=== PATIENT | female | born 1945 | race Caucasian/White ===

== ENCOUNTER → 2017-03-22 | Outpatient (CLI) | payer MEDICARE, BC ==
[~2017-03-22] MED LIST: ASPIRIN E.C. 8181 MG PO; CALCIUM WITH D31 CTB PO; NAPROSYN500 MG PO; SYNTHROID0.05 MG/TA PO
== END ==
LOC: MC.RAD 07:00
DX: Z12.31 Encounter for screening mammogram for malignant neoplasm of breast (principal)

== ENCOUNTER → 2017-06-10 | Outpatient (CLI) | payer MEDICARE, BC | LOC: COL.RAD 07:37 | DX: M79.645 Pain in left finger(s) (principal); M25.532 Pain in left wrist | CPT/HCPCS: J3301; Q9967 ==

== ENCOUNTER → 2018-03-31 | Outpatient (CLI) | payer MEDICARE, BC | LOC: MC.RAD 07:33 | DX: Z12.31 Encounter for screening mammogram for malignant neoplasm of breast (principal) ==

== ENCOUNTER → 2019-04-13 | Outpatient (CLI) | payer MEDICARE, BC | LOC: MC.RAD 04-07 09:15 | DX: Z12.31 Encounter for screening mammogram for malignant neoplasm of breast (principal) ==

== ENCOUNTER → 2020-05-03 | Outpatient (CLI) | payer MEDICARE, BC | LOC: MC.RAD 07:22 | DX: Z12.31 Encounter for screening mammogram for malignant neoplasm of breast (principal) ==

== ENCOUNTER → 2020-07-10 | Outpatient (CLI) | payer MEDICARE, BC | LOC: ZCOL.LAB 18:09 | DX: U07.1 COVID-19 (principal) ==

== ENCOUNTER → 2021-05-05 | Outpatient (CLI) | payer MEDICARE, BC | LOC: MC.RAD 10:37 | DX: Z12.31 Encounter for screening mammogram for malignant neoplasm of breast (principal) ==

== ENCOUNTER → 2022-05-08 | Outpatient (CLI) | payer MEDICARE, BC | LOC: MC.RAD 11:18 | DX: Z12.31 Encounter for screening mammogram for malignant neoplasm of breast (principal) ==

== ENCOUNTER → 2024-06-21 | Outpatient (CLI) | payer MEDICARE, BC ==
[~2024-06-21] MED LIST changes: +HAIRSKINNAILS PO; +PROLIA60 MG/ML SQ
== END ==
LOC: MC.RAD 09:49
DX: Z12.31 Encounter for screening mammogram for malignant neoplasm of breast (principal)

== ENCOUNTER 2024-09-05 13:52 | Outpatient (CLI) | payer MEDICARE, BC ==
[~2024-09-05] VITALS: Ht 157.5 cm; Wt 46.4 kg
[2024-09-05 14:12] VITALS: BP 101/62; PULSE 67; TEMP 98.8
[2024-09-05] MEDS ORDERED: Denosumab 60 MG/ML SYRINGE SQ ONE (14:30)
--- NOTE | 2024-09-05 14:35 | NUR ---
Pt tolerated prolia without issue. She exits dept with steady gait. Free of complaints at discharge.
== END 2024-09-05 14:35 | disposition home or self-care (01) ==
LOC: EUO 13:52
DX: M81.0 Age-related osteoporosis without current pathological fracture (principal)
CPT/HCPCS: J0897